=== PATIENT | male | born 1945 | race Caucasian/White ===

== ENCOUNTER 2023-04-06 22:35 | Outpatient (CLI) | payer MEDICARE, OTHER, SELFPAY | END 2023-04-06 22:36 | disposition home or self-care (01) | LOC: AMB 05-11 19:27 | PROVIDERS: Visit Provider Family Medicine | DX: D64.9 Anemia, unspecified (principal); J96.90 Respiratory failure, unspecified, unspecified whether with hypoxia or hypercapnia | CPT/HCPCS: A0425; A0428 ==